=== PATIENT | male | born 1975 | race American Indian/Alaskan Native ===

== ENCOUNTER 2016-10-28 18:11 | Emergency (ER) | payer MEDICARE ==
[2016-10-28] MEDS ORDERED: ZOFRAN IV ONE (18:37)
[2016-10-28] MEDS ORDERED: REGLAN IV ONE (18:42)
--- NOTE | 2016-10-28 18:42 | Emergency Department Report ---
[id number] BLEED Time Seen by Provider: 10/28/16 18:31 Source: patient, family, EMS (ems notes not available at time of chart dictation), RN notes reviewed Mode of arrival: Stretcher - History of Present Illness Initial comments: This is a 41-year-old male, previously unknown to me. He is brought to the hospital by EMS. Patient had outpatient otolaryngology surgery done earlier on today at [facility]. Apparently his physician is Dr. Powell. Phone number is [phone]. Patient was driven home by family today, and patient complains of nasal bleeding , coughing up blood, vomiting blood, headache. Symptoms have been constant since the surgery. The headache is throbbing and sharp. Has no exacerbating or relieving factors. -: Gradual Location: head Quality: aching Consistency: constant Improves with: none Worsens with: none Associated Symptoms: cough, headaches, loss of appetite, malaise, nausea/ vomiting - Related Data Home Medications Medication Instructions Recorded Confirmed Last Taken Unobtainable 10/28/16 10/28/16 Unknown Allergies Allergy/AdvReac Type Severity Reaction Status Date / Time No Known Allergies Allergy Unverified 10/28/16 18:28 ED Review of Systems ROS: Stated complaint: HEADACHE/NOSE BLEED Other details as noted in HPI Constitutional: denies: fever ENT: epistaxis Respiratory: see HPI Cardiovascular: as per HPI Gastrointestinal: denies: abdominal pain Genitourinary: as per HPI Musculoskeletal: as per HPI Neurological: headache Psychiatric: as per HPI ED Past Medical Hx - Past Medical History Hx Hypertension: Yes - Surgical History Additional Surgical History: back, nasal - Social History Smoking Status: Never Smoker Substance Use Type: None - Medications Home Medications: Home Medications Medication Instructions Recorded Confirmed Last Taken Type Unobtainable 10/28/16 10/28/16 Unknown History ED Physical Exam - General Limitations: No Limitations General appearance: alert, in distress, obese - Head Head exam: Present: atraumatic, normocephalic - Eye Eye exam: Present: normal appearance, PERRL, EOMI - ENT ENT exam: Present: other (patient has gauze in the bilateral nostrils, soaked with blood, he is speaking in full sentences and protecting his airway. The nose appears swollen.) - Neck Neck exam: Present: normal inspection, full ROM. Absent: tenderness, meningismus - Respiratory Respiratory exam: Present: normal lung sounds bilaterally. Absent: respiratory distress, wheezes, rales, rhonchi, stridor, chest wall tenderness - Cardiovascular Cardiovascular Exam: Present: regular rate, normal rhythm, normal heart sounds. Absent: bradycardia, tachycardia, irregular rhythm, systolic murmur, diastolic murmur, rubs, gallop - GI/Abdominal GI/Abdominal exam: Present: soft, normal bowel sounds. Absent: distended, tenderness, guarding, rebound, rigid, pulsatile mass - Rectal Rectal exam: Present: deferred - Extremities Exam Extremities exam: Present: normal inspection, full ROM, normal capillary refill. Absent: tenderness, pedal edema, joint swelling, calf tenderness - Back Exam Back exam: Present: normal inspection, full ROM. Absent: tenderness, CVA tenderness (R), CVA tenderness (L), muscle spasm, paraspinal tenderness, vertebral tenderness - Neurological Exam Neurological exam: Present: alert, other (Extraocular movements intact. Tongue midline. No facial droop. Facial sensation intact to light touch in the V1, V2 , V3 distribution bilaterally. 5 and 5 strength in 4 extremities.. Sensation is intact to light touch in 4 extremities.). Absent: motor sensory deficit - Psychiatric Psychiatric exam: Present: normal affect, normal mood - Skin Skin exam: Present: warm, dry, intact, normal color. Absent: rash ED Course Vital Signs 10/28/16 10/28/16 10/28/16 18:21 19:43 19:47 Temperature 97.8 F Pulse Rate 64 70 83 Respiratory 18 21 30 H Rate Blood Pressure 154/82 145/92 Blood Pressure [Right] O2 Sat by Pulse 99 96 93 Oximetry 10/28/16 10/28/16 10/28/16 20:00 20:08 20:21 Temperature 98.2 F Pulse Rate 69 69 Respiratory 21 20 20 Rate Blood Pressure 144/90 Blood Pressure 135/90 [Right] O2 Sat by Pulse 94 94 95 Oximetry 10/28/16 22:01 Temperature Pulse Rate 70 Respiratory 29 H Rate Blood Pressure 141/62 Blood Pressure [Right] O2 Sat by Pulse 97 Oximetry - Reevaluation(s) Reevaluation #1: 10/28/16 18:41 Postoperative pain, migraine headache, tension headache, cluster headache, damage to adjacent structures Assessment and plan: This is a 41-year-old male status post unspecified nasal surgery earlier on today. The patient and family are poor historians. He does not know what surgery he had done. He cannot to me what indication the surgery was for. He is protecting his airway at this time, most likely his symptoms are due to postoperative discomfort. He will be treated symptomatically. His student records coordinator was pagechet. 10/28/16 19:24 Reevaluation #2: 10/28/16 19:24 I received a call back from the nurse practitioner for Dr. Enrico Powell. Bipin Mendoza, the nurse practitioner for Dr Loren Powell, accepts patient on behalf of Dr Loren Powell d/w Dr Galarza, ER physician at [facility], who also accepts recent as an ER to ER transfer for otolaryngology consultation. This hospital does not have otolaryngology on-call or available for consultation. Given that the patient had surgery earlier on today, it is his best interests to be seen by his surgeon. He is currently protecting his airway, with a nonfocal neurologic examination. ED Medical Decision Making - Lab Data Vital Signs 10/28/16 18:21 Temperature 97.8 F Pulse Rate 64 Respiratory 18 Rate Blood Pressure 154/82 O2 Sat by Pulse 99 Oximetry Critical care attestation.: If time is entered above; I have spent that time in minutes in the direct care of this critically ill patient, excluding procedure time. ED Disposition Clinical Impression: Nasal bleeding Headache Qualifiers: Headache type: unspecified Headache chronicity pattern: unspecified pattern Disposition: DC/TX SHORT-TERM GEN HOSP INPT Is pt being admited?: No Does the pt Need Aspirin: No Condition: Good Referrals: PRIMARY CARE, [Primary Care Provider] - 3-5 Days
[2016-10-28] MEDS ORDERED: ZOFRAN ONE (19:46)
[2016-10-28 22:25] VITALS: BP 141/62
[2016-10-28] MEDS ORDERED: ULTRAM PO ONE (22:25)
== END 2016-10-28 22:45 | disposition short-term general hospital (02) ==
LOC: ED 18:11
DX: R04.0 Epistaxis (principal); R51 Headache
CPT/HCPCS: 96374; 96375; 99285; J2405; J2765